=== PATIENT | male | born 1995 | race African-American/Black ===

== ENCOUNTER 2020-01-22 16:56 | Emergency (ER) | payer BC, OTHER ==
[~2020-01-22] VITALS: Ht 193 cm; Wt 166.0 kg
--- NOTE | 2020-01-22 17:28 | NUR ---
PT GETTING UNDRESSED. PT HAS GOWN TO CHANGE INTO. PT GIVEN NON-SKID SOCKS. SITTER AT DOOR FOR OBS. PT HAS CUP FOR URINE SAMPLE.
--- NOTE | 2020-01-22 17:50 | NUR ---
garage doors down, pt in secured room .
--- NOTE | 2020-01-22 17:55 | NUR ---
pt stated he has not attempted suicide in past. pt father just . pt stated his reasoning for current SI is, "life sucks".
--- NOTE | 2020-01-22 18:02 | NUR ---
URINE IN LAB
[2020-01-22 18:23] LABS: AMPHETAMINE SCREEN, URINE Negative (Negative); BARBITURATE SCREEN, URINE Negative (Negative); BENZODIAZEPINE SCREEN, URINE Negative (Negative); CANNABINOID SCREEN, URINE Negative (Negative); COCAINE SCREEN, URINE Negative (Negative); METHADONE SCREEN, URINE Negative (Negative); OPIATE SCREEN, URINE Negative (Negative)
[2020-01-22 18:29] LABS: ALANINE AMINOTRANSFERASE 34 U/L (12-78); ALBUMIN 3.8 g/dL (3.4-5.0); ANION GAP 5 mmol/L (5-15); CALCIUM 9.3 mg/dL (8.5-10.1); CHLORIDE 108 mmol/L (98-107); SALICYLATE LEVEL 1.8 mg/dL (2.8-20.0)
[2020-01-22 18:40] LABS: ALKALINE PHOSPHATASE 87 U/L (45-117); BILIRUBIN,TOTAL 0.2 mg/dL (0.2-1.0); CREATININE 0.77 mg/dL (0.7-1.3)
--- NOTE | 2020-01-22 18:40 | NUR ---
pt belongings have been placed in clothing closet. pt given call light. lights dimmed for comfort. pt resting calmly in bed at this time. sitter at door for frequent obs.
[2020-01-22 18:42] LABS: BASOPHILS # (AUTO) 0.03 x10^3/uL (0-0.1); BASOPHILS % (AUTO) 0 % (0-1); EOSINOPHILS # (AUTO) 0.16 x10^3/uL (0-0.4); EOSINOPHILS % (AUTO) 2 % (1-7); LYMPHOCYTES # (AUTO) 1.77 x10^3/uL (1-3.4); LYMPHOCYTES % (AUTO) 19 % (22-44); MD NO; MEAN CORPUSCULAR HEMOGLOBIN 26.9 pg (27.5-34.5); MEAN CORPUSCULAR VOLUME 81.5 fL (81-97); MEAN PLATELET VOLUME 10.7 fL (7.4-10.4); MONOCYTES # (AUTO) 0.76 x10^3/uL (0.2-0.8); MONOCYTES % (AUTO) 8 % (2-9); NEUTROPHILS # (AUTO) 6.65 x10^3/uL (1.8-6.8); NEUTROPHILS % (AUTO) 71 % (42-75); PLATELET COUNT 295 x10^3/uL (130-400); RED BLOOD COUNT 5.66 x10^6/uL (4.38-5.82); RED CELL DISTRIBUTION WIDTH 14.7 % (9.4-14.8)
--- NOTE | 2020-01-22 18:52 | NUR ---
REPORT FROM JÚNIOR ASSUMED CARE OF PT
--- NOTE | 2020-01-22 19:15 | NUR ---
SITTER AT DOORWAY ROOM SECURE
--- NOTE | 2020-01-22 19:57 | NUR ---
Patient is resting comfortably in bed. Vital Signs within normal limits.
--- NOTE | 2020-01-22 21:22 | NUR ---
Patient is resting comfortably in bED
--- NOTE | 2020-01-22 23:20 | NUR ---
PT RESTING IN BED IN NAD AT THIS TIME
--- NOTE | 2020-01-22 23:48 | NUR ---
TP RN: OF RIGHT NOW, THE PT IS SELF PAY. HE STATES HE HAS INSURANCE HOWEVER HIS MOTHER HAS HIS INSURANCE CARD. SHE WILL NOT BE ABLE TO BE REACHED BY PHONE UNTIL TOMORROW. THE PACKET WILL BE FAXED TO [facility] FOR NOW AND RESENT TO OTHER FACILITIES ONCE THE INSURANCE IS UPDATED.
--- NOTE | 2020-01-23 00:51 | NUR ---
Patient is resting comfortably in bed.
--- NOTE | 2020-01-23 01:16 | NUR ---
Report received from SUSAN Blake. This RN to assume care.
--- NOTE | 2020-01-23 01:38 | NUR ---
Transferred patient to a hospital bed. Room secured, belongings in locked cabinet. Sitter outside.
--- NOTE | 2020-01-23 02:32 | NUR ---
Patient sleeping in hospital bed. Respirations even and unlabored. Room secured, belongings in locked cabinet, sitter outside.
[2020-01-23] MEDS ORDERED: DIPHENHYDRAMINE 50 MG CAPSULE ONE (03:52)
--- NOTE | 2020-01-23 03:55 | NUR ---
Patient requesting a sleep aid. Medicated patient per mar. Room secured, belongings locked in cabinet, sitter outside.
[2020-01-23] MEDS ORDERED: DIPHENHYDRAMINE 25 MG CAPSULE PO ONE (04:00)
--- NOTE | 2020-01-23 04:40 | NUR ---
Patient sleeping in hospital bed. Respirations even and unlabored. Room secured, belongings in locked cabinet, sitter outside.
--- NOTE | 2020-01-23 05:30 | NUR ---
Meal tray ordered for breakfast and lunch.
--- NOTE | 2020-01-23 05:30 | NUR ---
Patient sleeping in hospital bed. Respirations even and unlabored. Room secured, belongings in locked cabinet, sitter outside.
--- NOTE | 2020-01-23 06:43 | NUR ---
Report given to SUSAN Maloney. Care transferred.
--- NOTE | 2020-01-23 06:44 | NUR ---
RECEIVED REPORT FROM DIEGO RN, PLAN OF CARE DISCUSSED
--- NOTE | 2020-01-23 07:29 | NUR ---
MEAL ORDERED. PT SLEEPING, RESP EVEN AND UNLABORED. SITTER A BEDSIDE, ROOM SECURED.
--- NOTE | 2020-01-23 08:09 | NUR ---
MEAL PROVIDED, PT VERBALIZED NO ADDITIONAL NEEDS AT THIS TIME. ROOM SECURED, SITTER AT BS.
[2020-01-23 08:13] VITALS: BP 120/80
--- NOTE | 2020-01-23 09:50 | NUR ---
PT SLEEPING, RESP EVEN AND UNLABORED. SITTER AT DOOR, ROOM REMAINS SECURED
--- NOTE | 2020-01-23 10:58 | NUR ---
ORDERED MEAL. PT SLEEPING RESP EVEN AND UNLABORED. SITTER AT BS, ROOM REMAINS SECURED
--- NOTE | 2020-01-23 12:00 | NUR ---
PT WATCHING TV, ROOM REMAINS SECURED. SITTER AT DOOR
--- NOTE | 2020-01-23 12:29 | NUR ---
TASK RN, FIRST CONTACT WITH PT. Pt resting laying on hospital bed with eyes closed. Pt has unlabored respirations with even chest rise and fall. Provided pt lunch tray. Pt appreciative. Room remains secured for SI/HI. No other needs expressed at this time.
--- NOTE | 2020-01-23 13:20 | NUR ---
BREAK RN NOTE: PT SLEEPING ON HOSPITAL BED, RESPS EVEN AND UNLABORED. ROOM SECURE. SITTER MONITORING FROM HALLWAY FOR SAFETY.
--- NOTE | 2020-01-23 13:31 | NUR ---
REPORT RECEIVED FROM ROGELIO DAVIS.
--- NOTE | 2020-01-23 14:01 | NUR ---
PT SLEEPING ON HOSPITAL BED W/ SITTER OUTSIDE ROOM AND GARAGE DOORS DOWN FOR SAFETY, RESP EVEN AND UNLABORED, NADN.
--- NOTE | 2020-01-23 14:39 | NUR ---
PER EDMAR PSYCH BUSINESS DEVELOPMENT MANAGER PT IS TO BE DC. 1 WHITE PERSONAL BELONGINGS BAG RETURNED TO PT.
--- NOTE | 2020-01-23 14:47 | NUR ---
PT VERBALIZED UNDERSTANDING OF DC INSTRUCTIONS. AMBULATED TO DC DESK W/ A STEADY GAIT. DENIES NEED FOR TAXI VOUCHER.
== END 2020-01-23 14:56 | disposition home or self-care (01) ==
LOC: ED 18:42
DX: R45.851 Suicidal ideations (principal); F33.9 Major depressive disorder, recurrent, unspecified
CPT/HCPCS: 36415; 80053; 84443; 85025; 99283; Q0163; 80307